=== PATIENT | female | born 1980 | race Caucasian/White ===

== ENCOUNTER 2017-10-07 11:26 | Emergency (ER) | payer SELFPAY ==
[~2017-10-07] VITALS: Ht 157.5 cm; Wt 54.5 kg
[2017-10-07 11:27] VITALS: BP 109/77; PULSE 82; RESP 16; TEMP 98.7; O2SAT 98
[2017-10-07 12:12] LABS: BILIRUBIN, URINE NEG (NEG); BLOOD, URINE LARGE (NEG); GLUCOSE,URINE NEG (NEG); KETONE, URINE NEG (NEG); MUCUS URINE FEW /lpf (OCC); NITRITE,URINE NEG (NEG); PH, URINE 5.5 (5.0-8.5); SQUAMOUS EPITHELIAL CELL URINE <1 /hpf (0-5); URINE COLOR YELLOW (YELLW/STRAW); URINE LEUKOCYTE ESTERASE NEG (NEG)
[2017-10-07 12:12] LABS: AUTOMATED NEUTROPHIL # 5.8 TH/MM3 (1.8-7.7); BASOPHIL # 0.1 TH/MM3 (0-0.2); BASOPHIL % 0.6 % (0.0-2.0); EOSINOPHIL # 0.1 TH/MM3 (0-0.4); EOSINOPHIL % 1.4 % (0.0-4.0); HEMATOCRIT 37.2 % (35.0-46.0); HEMOGLOBIN 12.3 GM/DL (11.6-15.3); LYMPHOCYTE # 3.5 TH/MM3 (1.0-4.8); MEAN CELL VOLUME 85.9 FL (80.0-100.0); MEAN CORPUSCULAR HEMOGLOBIN 28.4 PG (27.0-34.0); MEAN CORPUSCULAR HGB CONC 33.1 % (32.0-36.0); MEAN PLATELET VOLUME 8.5 FL (7.0-11.0); MONO % 7.2 % (0.0-8.0); MONOCYTE # 0.7 TH/MM3 (0-0.9); NEUT % 56.8 % (16.0-70.0); PLATELET COUNT 279 TH/MM3 (150-450); RED BLOOD COUNT 4.32 MIL/MM3 (4.00-5.30); RED CELL DISTRIBUTION WIDTH 14.8 % (11.6-17.2); WHITE BLOOD COUNT 10.2 TH/MM3 (4.0-11.0)
[2017-10-07 12:19] LABS: PROTHROMBIN TIME - PATIENT 9.9 SEC (9.8-11.6)
[2017-10-07 12:23] LABS: ALBUMIN 3.6 GM/DL (3.4-5.0); AST (GOT) 8 U/L (15-37); BICARBONATE 22.1 MEQ/L (21.0-32.0); BLOOD UREA NITROGEN 13 MG/DL (7-18); CALCIUM 8.7 MG/DL (8.5-10.1); CHLORIDE 106 MEQ/L (98-107); CREATININE 0.62 MG/DL (0.50-1.00); GLOMERULAR FILTRATION RATE 109 ML/MIN (>89); GLUCOSE,RANDOM 97 MG/DL (74-106); LIPASE 727 U/L (73-393); SODIUM (NA) 138 MEQ/L (136-145)
[2017-10-07 12:28] LABS: ALKALINE PHOSPHATASE 53 U/L (45-117); ALT (GPT) 19 U/L (10-53); TOTAL BILIRUBIN ADULT 0.2 MG/DL (0.2-1.0); TOTAL PROTEIN 7.3 GM/DL (6.4-8.2)
[2017-10-07] MEDS ORDERED: SODIUM CHLOR 0.9% 1000 ML INJ 1,000 ML IV SCH (13:09)
[2017-10-07] MEDS ORDERED: ONDANSETRON HCL 4 MG/2 ML VIAL IVP ONE (13:15)
--- NOTE | 2017-10-07 13:19 | PD ---
HPI Chief Complaint: Abdominal Pain Time Seen by Provider: 13:01 Travel History International Travel<30 days: No Contact w/Intl Traveler<30days: No Traveled to known affect area: No History of Present Illness HPI This is a 37-year-old female who presents for evaluation of abdominal pain. She reports that she is currently on her menstrual period. She reports that 2 hours ago she developed somewhat fairly abrupt pain in her right lower adnexal region while she was sweeping. She endorses associated mild nausea and lightheadedness. She reports that this is different from her usual pelvic cramping which prompted evaluation. Pain is sharp, alleviated when she presses on her abdomen, worse when she is not pressing on her abdomen. Denies vomiting , diarrhea or constipation, epigastric abdominal pain. Denies unusual vaginal discharge. Currently bleeding secondary to menstruation. Denies fevers or chills, dysuria, flank pain. She has no other complaints at this time. PFSH Past Medical History ?: Not LMP: 10/05/2017 Social History Alcohol Use: No Tobacco Use: Yes Allergies-Medications (Allergen,Severity, Reaction): Coded Allergies: No Known Allergies (Unverified , 10/07/17) Review of Systems Except as stated in HPI: all other systems reviewed are Neg Physical Exam Narrative GENERAL: Well-developed well-nourished female in no acute distress SKIN: Warm and dry. HEAD: Atraumatic. Normocephalic. EYES: Pupils equal and round. No scleral icterus. No injection or drainage. ENT: No nasal bleeding or discharge. Mucous membranes pink and moist. NECK: Trachea midline. No JVD. CARDIOVASCULAR: Regular rate and rhythm. No murmur appreciated. RESPIRATORY: No accessory muscle use. Clear to auscultation. Breath sounds equal bilaterally. GASTROINTESTINAL: Abdomen soft, non-tender, nondistended. Hepatic and splenic margins not palpable. No tenderness to palpation over McBurney's point. There is some right adnexal tenderness to palpation. Pelvic examination the presence of a female nurse: MUSCULOSKELETAL: No obvious deformities. No clubbing. No cyanosis. No edema. NEUROLOGICAL: Awake and alert. No obvious cranial nerve deficits. Motor grossly within normal limits. Normal speech. PSYCHIATRIC: Appropriate mood and affect; insight and judgment normal. Data Data Last Documented VS Vital Signs Date Time Temp Pulse Resp B/P (MAP) Pulse Ox O2 Delivery O2 Flow Rate FiO2 10/07/17 11:27 98.7 82 16 109/77 (88) 98 Room Air Orders Orders Complete Blood Count With Diff (10/07/17 11:32) Comprehensive Metabolic Panel (10/07/17 11:32) Lipase (10/07/17 11:32) Prothrombin Time / Inr (Pt) (10/07/17 11:32) Act Partial Throm Time (Ptt) (10/07/17 11:32) Ua Includes Microscopic (10/07/17 11:32) Ed Urine Pregnancytest Poc (10/07/17 11:32) Gc And Chlamydia Pcr (10/07/17 13:09) Wet Prep Profile (10/07/17 13:09) Iv Access Insert/Monitor (10/07/17 13:09) Ecg Monitoring (10/07/17 13:09) Ondansetron Inj (Zofran Inj) (10/07/17 13:15) Us Pelvis Comp W Doppler (10/07/17 13:09) Sodium Chlor 0.9% 1000 Ml Inj (Ns 1000 M (10/07/17 13:09) Ketorolac Inj (Toradol Inj) (10/07/17 14:45) Ed Discharge Order (10/07/17 14:45) Labs Laboratory Tests Test 10/07/17 11:41 10/07/17 11:52 10/07/17 14:19 Urine Color YELLOW Urine Turbidity CLEAR Urine pH 5.5 Urine Specific [place] 1.020 Urine Protein NEG mg/dL Urine Glucose (UA) NEG mg/dL Urine Ketones NEG mg/dL Urine Occult Blood LARGE Urine Nitrite NEG Urine Bilirubin NEG Urine Urobilinogen LESS THAN 2.0 MG/DL Urine Leukocyte Esterase NEG Urine RBC 7 /hpf Urine WBC 2 /hpf Urine Squamous Epithelial Cells <1 /hpf Urine Mucus FEW /lpf White Blood Count 10.2 TH/MM3 Red Blood Count 4.32 MIL/MM3 Hemoglobin 12.3 GM/DL Hematocrit 37.2 % Mean Corpuscular Volume 85.9 FL Mean Corpuscular Hemoglobin 28.4 PG Mean Corpuscular Hemoglobin Concent 33.1 % Red Cell Distribution Width 14.8 % Platelet Count 279 TH/MM3 Mean Platelet Volume 8.5 FL Neutrophils (%) (Auto) 56.8 % Lymphocytes (%) (Auto) 34.0 % Monocytes (%) (Auto) 7.2 % Eosinophils (%) (Auto) 1.4 % Basophils (%) (Auto) 0.6 % Neutrophils # (Auto) 5.8 TH/MM3 Lymphocytes # (Auto) 3.5 TH/MM3 Monocytes # (Auto) 0.7 TH/MM3 Eosinophils # (Auto) 0.1 TH/MM3 Basophils # (Auto) 0.1 TH/MM3 CBC Comment DIFF FINAL Differential Comment Prothrombin Time 9.9 SEC Prothromb Time International Ratio 1.0 RATIO Activated Partial Thromboplast Time 24.1 SEC Blood Urea Nitrogen 13 MG/DL Creatinine 0.62 MG/DL Random Glucose 97 MG/DL Total Protein 7.3 GM/DL Albumin 3.6 GM/DL Calcium Level 8.7 MG/DL Alkaline Phosphatase 53 U/L Aspartate Amino Transf (AST/SGOT) 8 U/L Alanine Aminotransferase (ALT/SGPT) 19 U/L Total Bilirubin 0.2 MG/DL Sodium Level 138 MEQ/L Potassium Level 4.2 MEQ/L Chloride Level 106 MEQ/L Carbon Dioxide Level 22.1 MEQ/L Anion Gap 10 MEQ/L Estimat Glomerular Filtration Rate 109 ML/MIN Lipase 727 U/L Clue Cells (Wet Prep) NONE SEEN Vaginal Trichomonas (Wet Prep) NONE SEEN Vaginal Yeast (Wet Prep) NONE SEEN MDM Medical Decision Making Medical Screen Exam Complete: Yes Emergency Medical Condition: Yes Medical Record Reviewed: Yes Interpretation(s) CBC reveals no acute abnormalities CMP is unremarkable, lipase is 727 Urinalysis reveals 7 RBCs, likely contaminant for menstruation Urine test is negative Differential Diagnosis Ectopic , ovarian cyst, ovarian torsion, appendicitis, pelvic inflammatory disease, diverticulitis Narrative Course 37-year-old female currently on her menstrual cycle presents with 2 hours of right lower quadrant abdominal pain with some nausea. On examination she has mild right adnexal tenderness. Her pain is actually worse when she is not pressing on her abdomen, pain was somewhat alleviated when she presses on her abdomen. She has no tenderness to palpation over the right. Symptoms and history are more consistent with pelvic etiology for her symptomology. Her examination and history are not consistent with appendicitis. Reassuringly she is not tachycardic, febrile, she has no leukocytosis. Plan is for pelvic examination, ultrasound. The patient will be given IV fluids and Zofran for her symptoms. Patient's lipase is mildly elevated at 727, no history pink or tightness in the past and no epigastric pain. Ultrasound reveals CONCLUSION: 1. Small hyperechoic area in the lower uterine segment and could represent a leiomyoma. There is a small nabothian cyst as well. 2. Unremarkable ovaries with normal color flow. 3. Small amount of fluid in the endometrial canal which could represent blood products. Patient is menstruating. She was given a copy of her ultrasound results of that she would be aware of her leiomyoma. Wet prep is negative. Patient be given a dose of Toradol. Discussed signs and symptoms that warrant returning to the emergency room. She is stable for discharge. Diagnosis Primary Impression: Pelvic pain in female Additional Instructions: Take [id number] Tylenol or Motrin for pain. Follow-up with primary care physician as needed. Return for any acutely new or worsening symptoms such as severe intractable right lower quadrant abdominal pain, inability to tolerate oral food or fluids, fevers. Med/Other Pt SpecificInfo: No Change to Meds Disposition: 01 DISCHARGE HOME Condition: Stable Thiago Adkins Oct 07, 2017 13:18
--- NOTE | 2017-10-07 14:31 | RADRPT ---
EXAM DATE/TIME: 10/07/2017 13:51 [facility] COMPARISON: No previous studies available for comparison. INDICATIONS : Pelvic pain. MEDICAL HISTORY : Pelvic pain. SURGICAL HISTORY : None. ENCOUNTER: Initial ACUITY: 1 day PAIN SCORE: 3/10 LOCATION: Right pelvis MEASUREMENTS: UTERUS: 9.1 x 4.3 x 5.0 cm ENDOMETRIAL STRIPE: 2 mm RIGHT OVARY: 2.9 x 1.8 x 1.7 cm LEFT OVARY: 3.1 x 1.8 x 2.6 cm FINDINGS: UTERUS: There is a 1.2 x 1.2 x 2.3 cm hyperechoic area in the lower uterine segment. It is 1.5 x 1.2 x 1.6 cm cystic structure noted in the cervical region is consistent with a small nabothian cyst. There is sm all amount fluid in the endometrial canal. RIGHT OVARY: Ovary contains no mass or significant cystic lesion. LEFT OVARY: Ovary contains no mass or significant cystic lesion. MISCELLANEOUS: No free fluid. CONCLUSION: 1. Small hyperechoic area in the lower uterine segment and could represent a leiomyoma. There is a sm all nabothian cyst as well. 2. Unremarkable ovaries with normal color flow. 3. Small amount of fluid in the endometrial canal which could represent blood products. Patient is me nstruating. Jayden Sarmiento MD on October 07, 2017 at 14:26 Board Certified Radiologist. This report was verified electronically.
[2017-10-07] MEDS ORDERED: KETOROLAC TROMETHAMINE 30 MG/ML (IVP) VIAL IV PUSH ONE (14:45)
[2017-10-07 14:56] VITALS: BP 129/63
== END 2017-10-07 14:57 | disposition home or self-care (01) ==
LOC: NEPD 11:26
DX: R10.2 Pelvic and perineal pain (principal); N88.8 Other specified noninflammatory disorders of cervix uteri; Z72.0 Tobacco use
CPT/HCPCS: 76856; 80053; 81001; 83690; 84703; 85025; 85610; 85730; 87210; 87491; 87591; 93975; 96374; 96375; 99285; J1885; J2405; J7030

== ENCOUNTER 2018-01-04 10:53 | Emergency (ER) | payer SELFPAY ==
[2018-01-04 11:16] VITALS: BP 127/67; PULSE 70; RESP 16; TEMP 98.2; O2SAT 100
[2018-01-04] MEDS ORDERED: IBUP1TAB7 PO (11:38)
[2018-01-04] MEDS ORDERED: ROBA500T PO (11:38)
--- NOTE | 2018-01-04 11:38 | PD ---
HPI Chief Complaint: Fall Time Seen by Provider: 11:23 Travel History International Travel<30 days: No Contact w/Intl Traveler<30days: No Traveled to known affect area: No History of Present Illness HPI 37-year-old female presents to the emergency department with complaint of low back pain and left knee pain after pavement gave out from underneath her causing her to fall yesterday. Denies hitting her head or loss of consciousness. Denies chest pain, shortness of breath, abdominal pain, vomiting. Denies encopresis, incontinence, saddle anesthesias. Denies IV drug use or cancer. Denies paresthesias, loss of sensation, decreased range of motion, decreased strength to all extremities. Denies other extremity pain. Is ambulatory on the affected extremity. Has taken Aleve for symptom management. Rates pain 03/06. Just says her pain is "uncomfortable." No primary care provider. Denies significant past medical history. No known allergies. Has no other medical complaints. No other modifying factors or associated signs and symptoms. PFSH Past Medical History Medical History: Denies Significant Hx Tetanus Vaccination: < 5 Years ?: Not Past Surgical History Other Surgery: Yes Social History Alcohol Use: No Tobacco Use: Yes Substance Use: No Allergies-Medications (Allergen,Severity, Reaction): Coded Allergies: No Known Allergies (Unverified , 01/04/18) Reported Meds & Prescriptions Reported Meds & Active Scripts Active Robaxin (Methocarbamol) 500 Mg Tab 500 Mg PO QID PRN Ibuprofen 800 Mg Tab 800 Mg PO Q6HR PRN Review of Systems Except as stated in HPI: all other systems reviewed are Neg Physical Exam Narrative GENERAL: Well-nourished, well-developed female patient, in no acute distress; afebrile, nontoxic-appearing SKIN: Warm and dry. HEAD: Atraumatic. Normocephalic. EYES: Pupils equal and round. No scleral icterus. No injection or drainage. ENT: Mucosa pink and moist. Airway patent. NECK: Trachea midline. CARDIOVASCULAR: Regular rate. RESPIRATORY: No accessory muscle use. GASTROINTESTINAL: Flat. MUSCULOSKELETAL: Left knee without erythema, edema, ecchymosis; tenderness on palpation to the patellar aspect; no obvious deformity; with full range of motion and flexion to 90 with joint stable and negative drawer test. bilateral lower extremities supple and non-tense with 2+ pedal pulses and sensory intact; with full range of motion and 5/5 strength. 2+ DTRs bilaterally. Active dorsiflexion and extension of bilateral feet. Bilateral straight leg raise is negative for low back pain. Ambulatory in room with normal gait. Sitting up in bed at 90. No obvious deformities. No clubbing. No cyanosis. No edema. BACK: No midline point tenderness on palpation of the lumbar spine. Tenderness on palpation of bilateral lumbar paraspinal area. No obvious deformities. NEUROLOGICAL: Awake and alert. Oriented 3. No obvious cranial nerve deficits. Motor grossly within normal limits. Normal speech. Moves all extremities. 5/5 strength to all extremities. Sensory intact. PSYCHIATRIC: Appropriate mood and affect; insight and judgment normal. Data Data Last Documented VS Vital Signs Date Time Temp Pulse Resp B/P (MAP) Pulse Ox O2 Delivery O2 Flow Rate FiO2 01/04/18 11:16 98.2 70 16 127/67 (87) 100 Orders Orders Ed Discharge Order (01/04/18 11:38) Methocarbamol (Robaxin) (01/04/18 11:45) Ibuprofen (Motrin) (01/04/18 11:45) MDM Medical Decision Making Medical Screen Exam Complete: Yes Emergency Medical Condition: Yes Medical Record Reviewed: Yes Differential Diagnosis Fall, low back strain, knee contusion, patellar fracture, knee strain Narrative Course 37-year-old female with strain of fascia of the lower back and left knee injury after mechanical fall yesterday. No midline tenderness palpation of the lumbar spine. Denies encopresis, incontinence, saddle anesthesias. Patient is ambulatory in the room with a normal gait. Left knee with pain to the patellar aspect. I offered to x-ray the knee and the patient declined. I have for the patient crutches for support and she declined. Robaxin and ibuprofen administered in the ER. Robaxin and ibuprofen prescribed for home. Instructed patient to follow up with primary care provider. Patient verbalizes understanding and agreement with treatment plan. Patient is medically cleared and stable for discharge. Discussed reasons to return to the emergency department. Patient agrees with treatment plan. The patients vital signs are stable and the patient is stable for outpatient follow-up and treatment. Patient discharged home, stable and in no acute distress. Diagnosis Primary Impression: Fall Qualified Codes: W19.XXXA - Unspecified fall, initial encounter Additional Impressions: Strain of fascia of lower back Left knee injury Qualified Codes: S89.92XA - Unspecified injury of left lower leg, initial encounter Referrals: [facility] Primary Care Physician Patient Instructions: Fall Prevention (ED), General Instructions, Knee Sprain ( ED), Low Back Strain (ED) Additional Instructions: Tylenol or ibuprofen as directed and as needed for pain Robaxin as prescribed and as needed for muscle spasms Heating pad and/or ice to affected area to reduce pain Avoid aggravating activities; increase activity as tolerated Follow-up with primary care provider Return to emergency department immediately with worsening of symptoms Tylenol or ibuprofen as needed and as directed to reduce pain and inflammation Rest, ice, compress, and elevate extremity to decrease pain and inflammation Knee brace for support Avoid aggravating activity; increase activity as tolerated Follow-up with primary care provider Return to the emergency department immediately with worsening symptoms Med/Other Pt SpecificInfo: Prescription(s) given Scripts Methocarbamol (Robaxin) 500 Mg Tab 500 MG PO QID Y for MUSCLE SPASM, #30 TAB 0 Refills Prov: Janine Espinoza 01/04/18 Ibuprofen (Ibuprofen) 800 Mg Tab 800 MG PO Q6HR Y for PAIN, #30 TAB 0 Refills Prov: Janine Espinoza 01/04/18 Disposition: 01 DISCHARGE HOME Condition: Stable Janine Espinoza Jan 04, 2018 11:38
[2018-01-04] MEDS ORDERED: METHOCARBAMOL 500 MG TAB PO ONE (11:45)
[2018-01-04] MEDS ORDERED: IBUPROFEN 800 MG TAB PO ONE (11:45)
== END 2018-01-04 11:52 | disposition home or self-care (01) ==
LOC: NEPK 10:53
DX: S39.012A Strain of muscle, fascia and tendon of lower back, initial encounter (principal); S89.92XA Unspecified injury of left lower leg, initial encounter; W19.XXXA Unspecified fall, initial encounter; Z72.0 Tobacco use
CPT/HCPCS: 99283